=== PATIENT | female | born 1985 | race Two or more races ===

== ENCOUNTER 2019-09-07 18:34 | Emergency (ER) | payer MEDICAID, OTHER ==
[~2019-09-07] VITALS: Ht 170.2 cm; Wt 59.0 kg
[2019-09-07] MEDS ORDERED: BACITRACIN ZINC OINT UDPKT TOP ONE (20:45)
[2019-09-07] MEDS ORDERED: LIDOCAINE HCL/PF 1% 10 MG/ML 5ML VIAL IJ ONE (20:45)
[2019-09-07] MEDS ORDERED: TETANUS, DIPHTHERIA, PERTUSSIS VAC/PF 0.5ML (>7YR OLD) IM ONE (20:45)
[2019-09-07 21:34] VITALS: BP 136/86
== END 2019-09-07 21:35 | disposition home or self-care (01) ==
LOC: ER 18:34
DX: S61.012A Laceration without foreign body of left thumb without damage to nail, initial encounter (principal); Z90.81 Acquired absence of spleen; Z88.2 Allergy status to sulfonamides; Z88.1 Allergy status to other antibiotic agents; Z88.0 Allergy status to penicillin; Z91.013 Allergy to seafood; W26.8XXA Contact with other sharp object(s), not elsewhere classified, initial encounter; Y93.89 Activity, other specified; Y92.018 Other place in single-family (private) house as the place of occurrence of the external cause
CPT/HCPCS: 90471; 90715; 99283; J3490